=== PATIENT | female | born 1940 | race Caucasian/White ===

== ENCOUNTER → 2017-09-29 | Outpatient (CLI) | payer MEDICARE ==
[~2017-09-29] MED LIST: ACET-66 PO; ALLO100T PO; ASPI-555 PO; ATOR10 PO; BACL10TA PO; C,E,1CAP PO; FLUT1DIS5 IH; FURO40TA5 PO; INSU100I3 SQ; INSU3INS3 SQ; LEVO500T89 PO; LEVO50TA11 PO; METO-391 PO; MONT10TA24 PO; MV,M1TAB2 PO; PANT40TA PO; PRED20TA3 PO; THEO400T3 PO; TIOT18CA3 IH; TRAZ-144 PO
== END | disposition home or self-care (01) ==
LOC: OIH 11:41
PROVIDERS: ATTEND Family Medicine
DX: J44.9 Chronic obstructive pulmonary disease, unspecified (principal); J20.0 Acute bronchitis due to Mycoplasma pneumoniae; M47.895 Other spondylosis, thoracolumbar region
CPT/HCPCS: 71046

== ENCOUNTER 2017-10-04 12:20 | Inpatient (IN) | payer MEDICARE ==
[~2017-10-04] VITALS: Ht 165.1 cm; Wt 108.9 kg
[2017-10-04 13:39] LABS: APPEARANCE,URINE Clear (CLEAR); BILIRUBIN,URINE Negative (NEGATIVE); COLOR,URINE Yellow (YELLOW); GLUCOSE, URINE (UA) Negative (NEGATIVE); KETONES,URINE Negative (NEGATIVE); LEUKOCYTE ESTERASE ,URINE Negative (NEGATIVE); NITRATE,URINE Negative (NEGATIVE); OCCULT BLOOD,URINE Negative (NEGATIVE); PH,URINE 6.5 (5.0-8.0); PROTEIN,URINE Negative (NEGATIVE); UROBILINOGEN,URINE 0.2 mg/dL (0.2-1.0)
[2017-10-04] MEDS ORDERED: ACETAMINOPHEN 325 MG TAB ONE (13:59)
[2017-10-04] MEDS ORDERED: TETANUS/DIPHTHERIA TOXOID [ADULT] 0.5 ML VIAL IM ONE (14:01)
[2017-10-04 18:37] LABS: HEMATOCRIT 35.5 % (36-48); LYMPHOCYTES % (AUTO) 8.1 % (21.0-51.0); MEAN CORPUSCULAR HEMOGLOBIN 32.2 pg (27.0-33.0); MEAN CORPUSCULAR HGB CONC 34.9 g/dL (32.0-36.0); MEAN CORPUSCULAR VOLUME 92.2 fL (79-99); MONOCYTES % (AUTO) 1.8 % (3.0-13.0); NEUTROPHILS % (AUTO) 90.1 % (40.0-77.0); PLATELET COUNT (AUTO) 301 K/uL (130-400); RED BLOOD CELL COUNT(AUTO) 3.85 MIL/uL (4.00-5.50); RED CELL DISTRIBUTION WIDTH 15.2 % (11.0-15.5); WHITE BLOOD COUNT (AUTO) 9.5 K/uL (4.8-10.8)
[2017-10-04 18:45] LABS: CREATININE 2.1 mg/dL (0.5-1.5); POTASSIUM 3.7 mmol/L (3.5-5.1)
[2017-10-04 18:50] LABS: ALBUMIN 2.9 g/dL (3.5-5.0); BILIRUBIN,TOTAL 0.4 mg/dL (0.2-1.0); TOTAL PROTEIN, SERUM 6.6 g/dL (6.0-8.3)
[2017-10-04] MEDS ORDERED: MEPERIDINE-PF 25 MG/ML SYG ONE (22:02)
[2017-10-05 00:26] VITALS: BP 166/91
[2017-10-05] MEDS ORDERED: PRED20TA3 PO (01:15)
[2017-10-05] MEDS ORDERED: ACETAMINOPHEN EXTRA STRENGTH 500 MG TABLET PO PRN (01:15)
[2017-10-05] MEDS ORDERED: BACL10TA PO (01:15)
[2017-10-05] MEDS ORDERED: FLUT1DIS5 IH (01:15)
[2017-10-05] MEDS ORDERED: ASPI-555 PO (01:15)
[2017-10-05] MEDS ORDERED: TRAZODONE HCL 50 MG TAB PO PRN (01:15)
[2017-10-05] MEDS ORDERED: MV,M1TAB2 PO (01:15)
[2017-10-05] MEDS ORDERED: INSU3INS3 SQ (01:15)
[2017-10-05] MEDS ORDERED: C,E,1CAP PO (01:15)
[2017-10-05] MEDS ORDERED: INSU100I3 SQ (01:15)
[2017-10-05] MEDS ORDERED: LEVO500T89 PO (01:15)
[2017-10-05] MEDS ORDERED: THEO400T3 PO (01:15)
[2017-10-05] MEDS ORDERED: LEVO50TA11 PO (01:15)
[2017-10-05] MEDS ORDERED: ACET-66 PO (01:15)
[2017-10-05] MEDS ORDERED: PANT40TA PO (01:15)
[2017-10-05] MEDS ORDERED: MONT10TA24 PO (01:15)
[2017-10-05] MEDS ORDERED: ATOR10 PO (01:15)
[2017-10-05] MEDS ORDERED: ALLO100T PO (01:15)
[2017-10-05] MEDS ORDERED: TRAZ-144 PO (01:15)
[2017-10-05] MEDS ORDERED: TIOT18CA3 IH (01:15)
[2017-10-05] MEDS ORDERED: FURO40TA5 PO (01:23)
[2017-10-05] MEDS ORDERED: METO-391 PO (01:23)
[2017-10-05] MEDS ORDERED: GUAIFENESIN SUGAR-FREE 100 MG/5 ML UDCUP PO PRN (01:30)
[2017-10-05] MEDS ORDERED: ACETAMINOPHEN 325 MG TAB PO PRN ×3 (01:30→14:15)
[2017-10-05] MEDS ORDERED: GUAIFENESIN-DM 200/20 MG 10 ML PO PRN (01:30)
[2017-10-05] MEDS ORDERED: NITROGLYCERIN 0.4 MG SL TAB SL PRN (01:30)
[2017-10-05] MEDS ORDERED: GLUCAGON 1MG KIT 1 MG ML IM PRN (01:30)
[2017-10-05] MEDS ORDERED: LIDOCAINE HCL-MPF 1% 2ML VIAL IJ PRN (01:30)
[2017-10-05] MEDS ORDERED: ZOLPIDEM TARTRATE 5 MG TAB PO PRN (01:30)
[2017-10-05] MEDS ORDERED: POTASSIUM CHLORIDE 10% ELIXIR 20 MEQ/15 ML UDCUP PO PRN (01:30)
[2017-10-05] MEDS ORDERED: DIPHENHYDRAMINE HCL 25 MG CAPSULE PO PRN (01:30)
[2017-10-05] MEDS ORDERED: POTASSIUM CHLORIDE 20MEQ/100ML 100 ML IV PRN (01:30)
[2017-10-05] MEDS ORDERED: DEXTROSE 50%-WATER 50 ML DISP.SYRIN IV PRN (01:30)
[2017-10-05] MEDS ORDERED: MEPERIDINE-PF 25 MG/ML SYG IV PRN (01:30)
[2017-10-05] MEDS ORDERED: DiphenhydrAMINE HCL 50 MG/ML VIAL IVP PRN (01:30)
[2017-10-05] MEDS ORDERED: LACTULOSE 20 GM/30 ML UDCUP PO PRN (01:30)
[2017-10-05] MEDS ORDERED: CLONIDINE HCL 0.1 MG TABLET PO PRN (01:30)
[2017-10-05] MEDS ORDERED: MAG HYDROX/AL HYDROX/SIMETH ES 30 ML SUSP UDCUP PO PRN (01:30)
[2017-10-05 03:00] VITALS: BP 151/65
[2017-10-05 05:33] LABS: HEMATOCRIT 34.8 % (36-48); MEAN CORPUSCULAR HGB CONC 34.7 g/dL (32.0-36.0); MEAN CORPUSCULAR VOLUME 92.3 fL (79-99); PLATELET COUNT (AUTO) 273 K/uL (130-400); RED BLOOD CELL COUNT(AUTO) 3.78 MIL/uL (4.00-5.50); RED CELL DISTRIBUTION WIDTH 15.2 % (11.0-15.5); WHITE BLOOD COUNT (AUTO) 10.2 K/uL (4.8-10.8)
[2017-10-05 05:46] LABS: ALBUMIN 2.6 g/dL (3.5-5.0); BILIRUBIN,TOTAL 0.3 mg/dL (0.2-1.0); CREATININE 2.1 mg/dL (0.5-1.5); POTASSIUM 3.1 mmol/L (3.5-5.1); TOTAL PROTEIN, SERUM 6.1 g/dL (6.0-8.3)
[2017-10-05] MEDS: IPRATROPIUM 0.5 MG/2.5 ML INH IH SCH ×4 (05:51→23:04)
[2017-10-05] MEDS ORDERED: PNEUMOCOCCAL VACCINE POLYVALENT 0.5 ML/VIAL [PPV] IM ONE (06:30)
[2017-10-05] MEDS: POTASSIUM CHLORIDE 20 MEQ ERTAB PO PRN ×3 (06:58→12:12)
[2017-10-05] MEDS ORDERED: INSULIN ASPART 10 UNIT SQ SCH (07:30)
[2017-10-05] MEDS: INSULIN R PO SS1 SQ SCH ×4 (07:30→21:00)
[2017-10-05] MEDS ORDERED: LEVOTHYROXINE 50 MCG TABLET PO SCH (07:30)
[2017-10-05 08:00] VITALS: BP 159/76
[2017-10-05] MEDS: BACLOFEN 10 MG TABLET PO SCH ×2 (08:00→17:19)
[2017-10-05] MEDS: PANTOPRAZOLE SODIUM 40 MG TABLET.DR PO SCH (08:48)
[2017-10-05] MEDS: FUROSEMIDE 40 MG TABLET PO SCH ×2 (08:48→22:31)
[2017-10-05] MEDS: ASPIRIN 81 MG EC TAB PO SCH (08:49)
[2017-10-05] MEDS: ALLOPURINOL 100 MG TABLET PO SCH (08:49)
[2017-10-05] MEDS: PREDNISONE 20 MG TABLET PO SCH (08:50)
[2017-10-05] MEDS: INSULIN LISPRO 100 UNIT/ML 3ML SQ SCH ×3 (08:53→17:20)
[2017-10-05] MEDS: MULTIVITAMIN WITH MINERALS TABLET PO SCH (08:55)
[2017-10-05] MEDS: LEVOFLOXACIN 500 MG TABLET PO SCH (08:57)
[2017-10-05] MEDS: OCUVITE PO SCH (08:57)
[2017-10-05] MEDS: METOPROLOL SUCCINATE 50 MG PO SCH (09:00)
[2017-10-05] MEDS ORDERED: FLUTICASONE/VILANTEROL 1 EACH BLST.W.DEV IH SCH (09:00)
[2017-10-05] MEDS ORDERED: PANTOPRAZOLE SODIUM 40 MG TABLET.DR PO SCH (09:00)
[2017-10-05 11:20] VITALS: BP 135/64
[2017-10-05] MEDS: ONDANSETRON HCL 4 MG/2 ML VIAL IVP PRN (14:40)
[2017-10-05] MEDS ORDERED: KETOROLAC TROMETHAMINE 30MG/ML IV PRN (15:45)
[2017-10-05] MEDS ORDERED: FENTANYL 100 MCG/HR PATCH TD SCH (15:45)
[2017-10-05 16:48] VITALS: BP 134/58
[2017-10-05 20:00] VITALS: BP 138/61
[2017-10-05] MEDS ORDERED: INSULIN GLARGINE HUM REC ANLOG 30 UNIT SQ SCH (21:00)
[2017-10-05] MEDS ORDERED: [UNRECOGNIZED DRUG - OTHER] SQ SCH (21:00)
[2017-10-05] MEDS ORDERED: INSULIN GLARGINE 100 UNITS/ML 10 ML VIAL SQ ONE (22:21)
[2017-10-05] MEDS: MONTELUKAST SODIUM 10 MG TAB PO SCH (22:31)
[2017-10-05] MEDS: THEOPHYLLINE ANHYDROUS 100 MG TAB.SR.12H PO SCH (22:31)
[2017-10-05] MEDS: ATORVASTATIN CALCIUM 10 MG TABLET PO SCH (22:31)
[2017-10-05] MEDS: INSULIN GLARGINE 100 UNITS/ML 10 ML VIAL SQ SCH (22:50)
[2017-10-06] VITALS: BP 139/59
[2017-10-06 04:00] VITALS: BP 140/56
[2017-10-06 05:22] LABS: ALBUMIN 2.6 g/dL (3.5-5.0); BILIRUBIN,TOTAL 0.3 mg/dL (0.2-1.0); CREATININE 1.9 mg/dL (0.5-1.5); POTASSIUM 3.8 mmol/L (3.5-5.1)
[2017-10-06] MEDS: INSULIN R PO SS1 SQ SCH ×4 (06:06→21:00)
[2017-10-06] MEDS: LEVOTHYROXINE 50 MCG TABLET PO SCH (06:07)
[2017-10-06] MEDS: IPRATROPIUM 0.5 MG/2.5 ML INH IH SCH ×3 (07:01→18:10)
[2017-10-06 07:51] VITALS: BP 119/70
[2017-10-06] MEDS: INSULIN LISPRO 100 UNIT/ML 3ML SQ SCH ×3 (08:00→17:00)
[2017-10-06] MEDS: FUROSEMIDE 40 MG TABLET PO SCH ×2 (08:31→21:00)
[2017-10-06] MEDS: BACLOFEN 10 MG TABLET PO SCH ×2 (08:31→17:00)
[2017-10-06] MEDS: ONDANSETRON HCL 4 MG/2 ML VIAL IVP PRN (08:31)
[2017-10-06] MEDS: ASPIRIN 81 MG EC TAB PO SCH (08:31)
[2017-10-06] MEDS: ALLOPURINOL 100 MG TABLET PO SCH (08:31)
[2017-10-06] MEDS: PANTOPRAZOLE SODIUM 40 MG TABLET.DR PO SCH (08:31)
[2017-10-06] MEDS: METOPROLOL SUCCINATE 50 MG PO SCH (08:38)
[2017-10-06] MEDS: OCUVITE PO SCH (08:38)
[2017-10-06] MEDS: MULTIVITAMIN WITH MINERALS TABLET PO SCH (08:38)
[2017-10-06] MEDS: LEVOFLOXACIN 500 MG TABLET PO SCH (08:40)
[2017-10-06] MEDS: PREDNISONE 20 MG TABLET PO SCH (08:41)
[2017-10-06 11:13] VITALS: BP 159/87
[2017-10-06 16:24] VITALS: BP 117/63
[2017-10-06 20:26] VITALS: BP 132/57
[2017-10-06] MEDS: THEOPHYLLINE ANHYDROUS 100 MG TAB.SR.12H PO SCH (21:00)
[2017-10-06] MEDS: ATORVASTATIN CALCIUM 10 MG TABLET PO SCH (21:00)
[2017-10-06] MEDS ORDERED: INSULIN GLARGINE 100 UNITS/ML 10 ML VIAL SQ ONE (21:10)
[2017-10-06] MEDS: MONTELUKAST SODIUM 10 MG TAB PO SCH (21:22)
[2017-10-06] MEDS: INSULIN GLARGINE 100 UNITS/ML 10 ML VIAL SQ SCH (21:32)
[2017-10-07] VITALS: BP 137/61
[2017-10-07] MEDS: IPRATROPIUM 0.5 MG/2.5 ML INH IH SCH ×3 (00:23→11:26)
[2017-10-07 04:00] VITALS: BP 120/50
[2017-10-07] MEDS: LEVOTHYROXINE 50 MCG TABLET PO SCH (05:49)
[2017-10-07] MEDS: ONDANSETRON HCL 4 MG/2 ML VIAL IVP PRN (05:53)
[2017-10-07] MEDS ORDERED: PNEUMOCOCCAL VACCINE POLYVALENT 0.5 ML/VIAL [PPV] IM SCH (06:15)
[2017-10-07] MEDS ORDERED: PNEUMOCOCCAL VACCINE POLYVALENT 0.5 ML/VIAL [PPV] IM ONE (06:15)
[2017-10-07 07:30] VITALS: BP 136/66
[2017-10-07] MEDS: INSULIN R PO SS1 SQ SCH ×2 (07:30→11:30)
[2017-10-07] MEDS: INSULIN LISPRO 100 UNIT/ML 3ML SQ SCH ×2 (08:00→12:00)
[2017-10-07] MEDS: BACLOFEN 10 MG TABLET PO SCH (08:00)
[2017-10-07] MEDS: LEVOFLOXACIN 500 MG TABLET PO SCH (08:01)
[2017-10-07] MEDS: OCUVITE PO SCH (09:00)
[2017-10-07] MEDS: PREDNISONE 20 MG TABLET PO SCH (09:00)
[2017-10-07] MEDS: METOPROLOL SUCCINATE 50 MG PO SCH (09:00)
[2017-10-07] MEDS: MULTIVITAMIN WITH MINERALS TABLET PO SCH (09:00)
[2017-10-07] MEDS ORDERED: FENTANYL 50 MCG/HR PATCH TD SCH (09:00)
[2017-10-07] MEDS: ALLOPURINOL 100 MG TABLET PO SCH (09:11)
[2017-10-07] MEDS: FUROSEMIDE 40 MG TABLET PO SCH (09:11)
[2017-10-07] MEDS: PANTOPRAZOLE SODIUM 40 MG TABLET.DR PO SCH (09:11)
[2017-10-07] MEDS: ASPIRIN 81 MG EC TAB PO SCH (09:11)
[2017-10-07 11:15] VITALS: BP 139/63
== END 2017-10-07 13:05 | disposition home or self-care (01) | DRG 552 ==
LOC: EDH 12:20 → OBSVTOIN 16:51 → EDHIP 16:51 → 4BH 23:45
PROVIDERS: ADMIT Family Medicine; ATTEND Family Medicine
PROC: 3E0234Z Introduction of Serum, Toxoid and Vaccine into Muscle, Percutaneous Approach (ICD-10-PCS; principal; 2017-10-04)
DX: S32.049A Unspecified fracture of fourth lumbar vertebra, initial encounter for closed fracture (principal); E66.01 Morbid (severe) obesity due to excess calories; M41.9 Scoliosis, unspecified; W19.XXXA Unspecified fall, initial encounter; I10 Essential (primary) hypertension; E78.5 Hyperlipidemia, unspecified; Z68.39 Body mass index [BMI] 39.0-39.9, adult; Z88.0 Allergy status to penicillin; Z88.8 Allergy status to other drugs, medicaments and biological substances; Y93.89 Activity, other specified; Y99.8 Other external cause status; Y92.098 Other place in other non-institutional residence as the place of occurrence of the external cause; Z23 Encounter for immunization
CPT/HCPCS: 36415; 70450; 72125; 72131; 80053; 81003; 82947; 82948; 85025; 85027; 90714; 90732; 94640; 94664; J1815; J2175; J2405; J7070

== ENCOUNTER 2018-02-26 19:34 | Inpatient (IN) | payer MEDICARE ==
[~2018-02-26] VITALS: Ht 165.6 cm; Wt 110.1 kg
[~2018-02-26 19:34] MED LIST changes: -TRAZ-144 PO; +TRAZ-185 PO
[2018-02-26 20:19] LABS: BASOPHILS % (AUTO) 0.6 % (0.0-5.0); EOSINOPHILS % (AUTO) 0.6 % (0.0-8.0); HEMATOCRIT 37.3 % (36-48); LYMPHOCYTES % (AUTO) 23.6 % (21.0-51.0); MEAN CORPUSCULAR HEMOGLOBIN 31.9 pg (27.0-33.0); MEAN CORPUSCULAR HGB CONC 34.4 g/dL (32.0-36.0); MEAN CORPUSCULAR VOLUME 92.7 fL (79-99); MONOCYTES % (AUTO) 8.3 % (3.0-13.0); NEUTROPHILS % (AUTO) 66.9 % (40.0-77.0); PLATELET COUNT (AUTO) 296 K/uL (130-400); RED BLOOD CELL COUNT(AUTO) 4.02 MIL/uL (4.00-5.50); RED CELL DISTRIBUTION WIDTH 15.7 % (11.0-15.5); WHITE BLOOD COUNT (AUTO) 8.2 K/uL (4.8-10.8)
[2018-02-26 20:23] LABS: APPEARANCE,URINE Clear (CLEAR); BILIRUBIN,URINE Negative (NEGATIVE); COLOR,URINE Yellow (YELLOW); GLUCOSE, URINE (UA) Negative (NEGATIVE); KETONES,URINE Negative (NEGATIVE); LEUKOCYTE ESTERASE ,URINE Negative (NEGATIVE); NITRATE,URINE Negative (NEGATIVE); OCCULT BLOOD,URINE Negative (NEGATIVE); PROTEIN,URINE Negative (NEGATIVE); UROBILINOGEN,URINE 0.2 mg/dL (0.2-1.0)
[2018-02-26 20:31] LABS: AMPHET/METH SCREEN,URINE NEGATIVE (NEGATIVE); BARBITURATE SCREEN, URINE NEGATIVE (NEGATIVE); BENZODIAZEPINES SCREEN,URINE NEGATIVE (NEGATIVE); CANNABINOID SCREEN,URINE NEGATIVE (NEGATIVE); COCAINE SCREEN,URINE NEGATIVE (NEGATIVE); OPIATE SCREEN,URINE NEGATIVE (NEGATIVE); PHENCYCLIDINE SCREEN,URINE NEGATIVE (NEGATIVE)
[2018-02-26 20:34] LABS: CREATININE 1.7 mg/dL (0.5-1.5); POTASSIUM 3.2 mmol/L (3.5-5.1)
[2018-02-26 20:38] LABS: ALBUMIN 2.9 g/dL (3.5-5.0); BILIRUBIN,TOTAL 0.2 mg/dL (0.2-1.0); TOTAL PROTEIN, SERUM 6.7 g/dL (6.0-8.3)
[2018-02-27] VITALS (7 sets, daily range): BP systolic 137–184; BP diastolic 52–75
[2018-02-27] MEDS ORDERED: HYDRALAZINE HCL 20 MG/ML VIAL IV PRN (01:45)
[2018-02-27] MEDS ORDERED: ONDANSETRON HCL MDV 20ML 2 MG/ML VIAL IVP PRN (01:45)
[2018-02-27] MEDS: INSULIN HUMULIN R 100 UNIT/ML 3ML SQ SCH ×2 (05:48→12:40)
[2018-02-27] MEDS: ACETAMINOPHEN 325 MG TAB PO PRN (12:38)
[2018-02-27] MEDS: PANTOPRAZOLE SODIUM 40 MG TABLET.DR PO SCH (12:40)
[2018-02-27] MEDS ORDERED: ACETAMINOPHEN EXTRA STRENGTH 500 MG TABLET PO PRN (14:00)
[2018-02-27] MEDS ORDERED: TRAZODONE HCL 50 MG TAB PO PRN (14:00)
[2018-02-27] MEDS: INSULIN LISPRO 100 UNIT/ML 3ML SQ SCH ×2 (16:30→21:35)
[2018-02-27] MEDS: BACLOFEN 10 MG TABLET PO SCH (17:02)
[2018-02-27] MEDS: ALBUTEROL SULFATE 0.083% 2.5 MG/3 ML INH IH SCH ×2 (18:43→23:41)
[2018-02-27] MEDS: IPRATROPIUM 0.5 MG/2.5 ML INH IH SCH ×2 (18:43→23:41)
[2018-02-27] MEDS ORDERED: FUROSEMIDE 40 MG TABLET ONE (18:44)
[2018-02-27] MEDS: FUROSEMIDE 40 MG TABLET PO SCH (18:48)
[2018-02-27] MEDS: BUDESONIDE 0.5 MG/2 ML INH IH SCH (18:57)
[2018-02-27] MEDS: **HM**Theophylline Anhydrous (Theophylline) 400 MG PO SCH (21:00)
[2018-02-27] MEDS: METOPROLOL TARTRATE 25 MG TAB PO SCH (21:23)
[2018-02-27] MEDS: ATORVASTATIN CALCIUM 40 MG TABLET PO SCH (21:23)
[2018-02-27] MEDS: ENOXAPARIN SODIUM 40 MG/0.4 ML SYRINGE SQ SCH (21:32)
[2018-02-27] MEDS: INSULIN GLARGINE 100 UNITS/ML 10 ML VIAL SQ SCH (21:33)
[2018-02-28 04:22] VITALS: BP 132/62
[2018-02-28] MEDS: INSULIN LISPRO 100 UNIT/ML 3ML SQ SCH ×4 (06:02→21:00)
[2018-02-28] MEDS: ALBUTEROL SULFATE 0.083% 2.5 MG/3 ML INH IH SCH ×3 (06:16→18:14)
[2018-02-28] MEDS: IPRATROPIUM 0.5 MG/2.5 ML INH IH SCH ×3 (06:17→18:14)
[2018-02-28] MEDS ORDERED: LEVOTHYROXINE 50 MCG TABLET ONE (06:24)
[2018-02-28] MEDS: BUDESONIDE 0.5 MG/2 ML INH IH SCH ×2 (06:26→18:28)
[2018-02-28] MEDS: LEVOTHYROXINE 50 MCG TABLET PO SCH (06:28)
[2018-02-28 07:00] VITALS: BP 141/63
[2018-02-28] MEDS: METOPROLOL TARTRATE 25 MG TAB PO SCH ×2 (08:21→21:45)
[2018-02-28] MEDS: PANTOPRAZOLE SODIUM 40 MG TABLET.DR PO SCH (08:21)
[2018-02-28] MEDS: MONTELUKAST SODIUM 10 MG TAB PO SCH (08:21)
[2018-02-28] MEDS: BACLOFEN 10 MG TABLET PO SCH ×2 (08:21→17:08)
[2018-02-28] MEDS: ASPIRIN 81 MG EC TAB PO SCH (08:21)
[2018-02-28] MEDS: MULTIVITAMIN WITH MINERALS TABLET PO SCH (08:21)
[2018-02-28] MEDS: FUROSEMIDE 40 MG TABLET PO SCH ×2 (08:21→21:45)
[2018-02-28] MEDS: ALLOPURINOL 100 MG TABLET PO SCH (08:21)
[2018-02-28] MEDS: ACETAMINOPHEN 325 MG TAB PO PRN ×2 (08:22→17:08)
[2018-02-28] MEDS: C E ZINC COPPER PO SCH (09:00)
[2018-02-28] MEDS: OMEGA3S PO SCH (09:00)
[2018-02-28] MEDS: LUT PO SCH (09:00)
[2018-02-28] MEDS ORDERED: PANTOPRAZOLE SODIUM 40 MG TABLET.DR PO SCH (09:00)
[2018-02-28 11:00] VITALS: BP 156/62
[2018-02-28] MEDS: DIVALPROEX SODIUM 250 MG TABLET.DR PO SCH ×2 (12:06→21:45)
[2018-02-28 16:00] VITALS: BP 132/43
[2018-02-28] MEDS ORDERED: POTASSIUM CHLORIDE 10% ELIXIR 20 MEQ/15 ML UDCUP PO PRN (19:45)
[2018-02-28] MEDS ORDERED: LIDOCAINE HCL-MPF 1% 2ML VIAL IVP PRN (19:45)
[2018-02-28] MEDS ORDERED: POTASSIUM CHLORIDE 20MEQ/100ML 100 ML IV PRN (19:45)
[2018-02-28 20:05] VITALS: BP 104/84
[2018-02-28] MEDS: **HM**Theophylline Anhydrous (Theophylline) 400 MG PO SCH (21:00)
[2018-02-28] MEDS: ATORVASTATIN CALCIUM 40 MG TABLET PO SCH (21:45)
[2018-02-28] MEDS: INSULIN GLARGINE 100 UNITS/ML 10 ML VIAL SQ SCH (21:47)
[2018-02-28] MEDS: ENOXAPARIN SODIUM 40 MG/0.4 ML SYRINGE SQ SCH (21:47)
[2018-03-01] VITALS (7 sets, daily range): BP systolic 122–145; BP diastolic 47–97
[2018-03-01] MEDS: IPRATROPIUM 0.5 MG/2.5 ML INH IH SCH ×4 (00:03→18:57)
[2018-03-01] MEDS: ALBUTEROL SULFATE 0.083% 2.5 MG/3 ML INH IH SCH ×4 (00:03→18:57)
[2018-03-01 04:53] LABS: CREATININE 1.8 mg/dL (0.5-1.5); POTASSIUM 3.1 mmol/L (3.5-5.1)
[2018-03-01] MEDS: LEVOTHYROXINE 50 MCG TABLET PO SCH (06:24)
[2018-03-01] MEDS: BUDESONIDE 0.5 MG/2 ML INH IH SCH ×2 (06:30→18:57)
[2018-03-01] MEDS: INSULIN LISPRO 100 UNIT/ML 3ML SQ SCH ×4 (06:41→21:37)
[2018-03-01] MEDS: DIVALPROEX SODIUM 250 MG TABLET.DR PO SCH ×2 (07:46→20:29)
[2018-03-01] MEDS: ALLOPURINOL 100 MG TABLET PO SCH (07:46)
[2018-03-01] MEDS: BACLOFEN 10 MG TABLET PO SCH ×2 (07:46→16:13)
[2018-03-01] MEDS: METOPROLOL TARTRATE 25 MG TAB PO SCH ×2 (07:46→20:28)
[2018-03-01] MEDS: PANTOPRAZOLE SODIUM 40 MG TABLET.DR PO SCH (07:46)
[2018-03-01] MEDS: MULTIVITAMIN WITH MINERALS TABLET PO SCH (07:46)
[2018-03-01] MEDS: MONTELUKAST SODIUM 10 MG TAB PO SCH (07:46)
[2018-03-01] MEDS: FUROSEMIDE 40 MG TABLET PO SCH ×2 (07:47→20:29)
[2018-03-01] MEDS: LUT PO SCH (07:47)
[2018-03-01] MEDS: ASPIRIN 81 MG EC TAB PO SCH (07:47)
[2018-03-01] MEDS: OMEGA3S PO SCH (07:47)
[2018-03-01] MEDS: C E ZINC COPPER PO SCH (07:47)
[2018-03-01] MEDS ORDERED: POTASSIUM CHLORIDE 20 MEQ ERTAB PO SCH (09:45)
[2018-03-01] MEDS ORDERED: TRAMADOL HCL 50 MG TABLET PO PRN (18:15)
[2018-03-01] MEDS: ENOXAPARIN SODIUM 40 MG/0.4 ML SYRINGE SQ SCH (20:27)
[2018-03-01] MEDS: INSULIN GLARGINE 100 UNITS/ML 10 ML VIAL SQ SCH (20:28)
[2018-03-01] MEDS: **HM**Theophylline Anhydrous (Theophylline) 400 MG PO SCH (20:29)
[2018-03-01] MEDS: ATORVASTATIN CALCIUM 40 MG TABLET PO SCH (20:29)
[2018-03-02] MEDS: IPRATROPIUM 0.5 MG/2.5 ML INH IH SCH ×3 (00:01→11:32)
[2018-03-02] MEDS: ALBUTEROL SULFATE 0.083% 2.5 MG/3 ML INH IH SCH ×3 (00:01→11:32)
[2018-03-02 04:26] VITALS: BP 175/76
[2018-03-02] MEDS: INSULIN LISPRO 100 UNIT/ML 3ML SQ SCH ×2 (06:24→12:31)
[2018-03-02] MEDS: LEVOTHYROXINE 50 MCG TABLET PO SCH (06:27)
[2018-03-02] MEDS: BUDESONIDE 0.5 MG/2 ML INH IH SCH (06:34)
[2018-03-02 07:40] VITALS: BP 129/39
[2018-03-02] MEDS: LUT PO SCH (09:00)
[2018-03-02] MEDS: C E ZINC COPPER PO SCH (09:00)
[2018-03-02] MEDS: OMEGA3S PO SCH (09:00)
[2018-03-02] MEDS: DIVALPROEX SODIUM 250 MG TABLET.DR PO SCH (09:35)
[2018-03-02] MEDS: MULTIVITAMIN WITH MINERALS TABLET PO SCH (09:35)
[2018-03-02] MEDS: ASPIRIN 81 MG EC TAB PO SCH (09:35)
[2018-03-02] MEDS: MONTELUKAST SODIUM 10 MG TAB PO SCH (09:35)
[2018-03-02] MEDS: BACLOFEN 10 MG TABLET PO SCH (09:35)
[2018-03-02] MEDS: ALLOPURINOL 100 MG TABLET PO SCH (09:35)
[2018-03-02] MEDS: METOPROLOL TARTRATE 25 MG TAB PO SCH (09:35)
[2018-03-02] MEDS: PANTOPRAZOLE SODIUM 40 MG TABLET.DR PO SCH (09:40)
[2018-03-02 10:07] LABS: POTASSIUM 3.4 mmol/L (3.5-5.1)
[2018-03-02 10:14] LABS: CREATININE 1.8 mg/dL (0.5-1.5)
[2018-03-02] MEDS: POTASSIUM CHLORIDE 20 MEQ ERTAB PO PRN ×2 (11:22→15:20)
[2018-03-02 11:50] VITALS: BP 170/79
[2018-03-03] MEDS ORDERED: FUROSEMIDE 40 MG TABLET PO SCH (09:00)
== END 2018-03-02 15:30 | disposition home or self-care (01) | DRG 69 ==
LOC: EDH 19:34 → OBSVTOIN 23:58 → EDHIP 23:58 → 2DH 02-27 00:48
PROVIDERS: ADMIT Internal Medicine; ATTEND Internal Medicine
PROC: 4A00X4Z Measurement of Central Nervous Electrical Activity, External Approach (ICD-10-PCS; principal; 2018-03-01)
DX: G45.9 Transient cerebral ischemic attack, unspecified (principal); Z68.41 Body mass index [BMI] 40.0-44.9, adult; E11.65 Type 2 diabetes mellitus with hyperglycemia; I10 Essential (primary) hypertension; E66.9 Obesity, unspecified; R56.9 Unspecified convulsions; E78.5 Hyperlipidemia, unspecified; J44.9 Chronic obstructive pulmonary disease, unspecified; G47.33 Obstructive sleep apnea (adult) (pediatric); Z88.6 Allergy status to analgesic agent; Z88.0 Allergy status to penicillin; Z88.8 Allergy status to other drugs, medicaments and biological substances; Z79.4 Long term (current) use of insulin; Z79.82 Long term (current) use of aspirin; Z79.899 Other long term (current) drug therapy; Z74.01 Bed confinement status
CPT/HCPCS: 36415; 70450; 70544; 70551; 71045; 80048; 80053; 80305; 81003; 82550; 82948; 84484; 85025; 93005; 93306; 93880; 93970; 94640; 94664; 95819; 97039; J0360; J1650; J1815

== ENCOUNTER → 2018-06-10 | Outpatient (CLI) | payer MEDICARE ==
[~2018-06-10] MED LIST changes: -LEVO500T89 PO; -PRED20TA3 PO
== END | disposition home or self-care (01) ==
LOC: RAH 11:19
PROVIDERS: ATTEND Family Medicine
DX: N28.1 Cyst of kidney, acquired (principal); N32.89 Other specified disorders of bladder
CPT/HCPCS: 76770